=== PATIENT | male | born 1985 | race Caucasian/White ===

== ENCOUNTER 2018-02-23 03:05 | Emergency (ER) | payer BC, OTHER ==
[2018-02-23 03:24] VITALS: BP 120/76; PULSE 78; RESP 16; TEMP 97.9
--- NOTE | 2018-02-23 04:39 | XR ---
EXAMINATION TYPE: XR hand complete LT DATE OF EXAM: 02/23/2018 COMPARISON: NONE HISTORY: Fall. Finger laceration. TECHNIQUE: 3 views FINDINGS: I see no fracture nor dislocation. Joint spaces are normal. Metacarpals are intact. There i s no sign of a foreign body. IMPRESSION: Negative left hand exam.
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
== END 2018-02-23 05:06 | disposition home or self-care (01) ==
LOC: EC 03:05
DX: S61.213A Laceration without foreign body of left middle finger without damage to nail, initial encounter (principal); W25.XXXA Contact with sharp glass, initial encounter; Y93.89 Activity, other specified; Y92.69 Other specified industrial and construction area as the place of occurrence of the external cause; Y99.0 Civilian activity done for income or pay
CPT/HCPCS: 99283

== ENCOUNTER 2019-01-28 15:18 | Emergency (ER) | payer OTHER, BC ==
[2019-01-28 15:23] VITALS: BP 123/76; PULSE 91; RESP 16; TEMP 98.4
[2019-01-28] MEDS ORDERED: DIPH,PERTUS(ACELL)TETVAC-LF 0.5 ML VIAL IM ONE (15:28)
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
== END 2019-01-28 16:15 | disposition home or self-care (01) ==
LOC: EC 15:18
DX: S09.90XA Unspecified injury of head, initial encounter (principal); R51 Headache; Z23 Encounter for immunization; V47.5XXA Car driver injured in collision with fixed or stationary object in traffic accident, initial encounter; Y92.410 Unspecified street and highway as the place of occurrence of the external cause; Y93.89 Activity, other specified
CPT/HCPCS: 70450; 72125; 90471; 90715; 99284